=== PATIENT | female | born 1955 | race Caucasian/White ===

== ENCOUNTER 2022-06-01 23:31 | Emergency (ER) | payer MEDICARE, OTHER ==
[2022-06-02 01:10] LABS: RED BLOOD COUNT 5.08 M/UL (4.00-5.10); WHITE BLOOD COUNT 6.9 K/UL (4.5-11.0)
[2022-06-02] MEDS ORDERED: KEFLEX CAP 250250 MG PO (05:39)
[2022-06-02] MEDS ORDERED: ZOFRAN ODT 4 MG4 MG GT (05:39)
== END 2022-06-02 06:15 | disposition home or self-care (01) ==
LOC: ER1 23:31
PROVIDERS: Physician Assistant
DX: R10.9 Unspecified abdominal pain (principal); R11.2 Nausea with vomiting, unspecified; R19.7 Diarrhea, unspecified; R10.817 Generalized abdominal tenderness
CPT/HCPCS: 80053; 81001; 82150; 83605; 83690; 85025; 96374; 99284; Q9967